=== PATIENT | female | born 1990 | race Two or more races ===

== ENCOUNTER 2017-06-27 19:40 | Emergency (ER) | payer OTHER ==
[~2017-06-27] VITALS: Ht 157.5 cm; Wt 99.8 kg
[2017-06-27] MEDS ORDERED: INTEGRA F CAPS1 EACH (19:53)
[2017-06-27] MEDS ORDERED: ZIAC 2.5-6.251 EACH (19:54)
[2017-06-27] MEDS ORDERED: VITAMIN D1000 UNIT (19:54)
[2017-06-28] MEDS ORDERED: ZOFRAN4 MG PO (03:18)
[2017-06-28] MEDS ORDERED: PEPCID40 MG PO (03:18)
[2017-06-28] MEDS ORDERED: ZIAC 2.5-6.251 EACH PO (03:18)
== END 2017-06-28 03:41 ==
LOC: ER 19:40
DX: K52.89 Other specified noninfective gastroenteritis and colitis (principal)

== ENCOUNTER 2018-02-08 00:59 | Emergency (ER) | payer OTHER ==
[~2018-02-08] VITALS: Ht 157.5 cm; Wt 98.9 kg
[~2018-02-08 00:59] MED LIST: INTEGRA F CAPS1 EACH; PEPCID40 MG PO; VITAMIN D1000 UNIT; ZIAC 2.5-6.251 EACH; ZIAC 2.5-6.251 EACH PO; ZOFRAN4 MG PO
[2018-02-08] MEDS ORDERED: FORTAMET500 MG (01:14)
== END 2018-02-08 14:02 | disposition home or self-care (01) ==
LOC: ER 00:59
DX: K52.9 Noninfective gastroenteritis and colitis, unspecified (principal)

== ENCOUNTER → 2019-02-17 10:47 | Outpatient (CLI) | payer OTHER ==
[~2019-02-17 10:47] MED LIST changes: +FORTAMET500 MG
== END | disposition home or self-care (01) ==
LOC: LAB 10:47
DX: Z00.00 Encounter for general adult medical examination without abnormal findings (principal); E78.49 Other hyperlipidemia; E55.9 Vitamin D deficiency, unspecified; E71.19 Other disorders of branched-chain amino-acid metabolism; D50.8 Other iron deficiency anemias; E78.5 Hyperlipidemia, unspecified

== ENCOUNTER 2020-01-24 15:29 | Outpatient (CLI) | payer OTHER | END 2020-01-24 15:35 | disposition home or self-care (01) | LOC: RAD 15:29 | PROVIDERS: ATTEND General Practice | DX: M54.5 Low back pain (principal) ==